=== PATIENT | male | born 1990 | race Caucasian/White ===

== ENCOUNTER 2018-10-26 14:54 | Emergency (ER) | payer OTHER ==
[2018-10-26 15:16] VITALS: BP 127/80
--- NOTE | 2018-10-26 15:16 | ED Physician Documentation ---
History of Present Illness - Stated complaint Stated Complaint: CARBON MENOXIDE EXPOSURE - History obtained from History obtained from: Patient - History of Present Illness Timing: Yesterday (They have been helping their parents move, they were in the house during the day for the last few days, they were last there yesterday morning. They found that the Furnace in the house was leaking carbon monoxide. This patient is relatively asymptomatic although he had red eyes yesterday and mild nausea.) Review of Systems Constitutional: denies: Fever, Chills Nose: reports: Rhinorrhea / runny nose Cardiac: denies: Chest pain / pressure, Palpitations Respiratory: denies: Dyspnea, Cough PD PAST MEDICAL HISTORY - Allergies Allergies/Adverse Reactions: Allergies Allergy/AdvReac Type Severity Reaction Status Date / Time No Known Drug Allergies Allergy Verified 10/26/18 15:14 PD ED PE NORMAL - Vitals Vital signs reviewed: Yes - General General: Alert and oriented X 3, No acute distress - HEENT HEENT: PERRL, EOMI - Neck Neck: Supple, no meningeal sign, No bony TTP - Cardiac Cardiac: RRR, No murmur - Respiratory Respiratory: No respiratory distress, Clear bilaterally - Abdomen Abdomen: Non tender - Derm Derm: No rash - Neuro Neuro: Alert and oriented X 3, Normal speech - Psych Psych: Normal mood, Normal affect Results - Vitals Vitals: Vital Signs - 24 hr 10/26/18 15:14 Temperature 36.9 C Heart Rate 73 Respiratory 16 Rate Blood Pressure 127/80 O2 Saturation 97 Oxygen O2 Source Room air - Labs Labs: Laboratory Tests 10/26/18 15:28 VBG Total Hgb 14.9 VBG Oxyhemoglobin 79 L VBG Carboxyhemoglobin 1.3 VBG Methemoglobin 0.3 Departure - Departure Disposition: 01 Home, Self Care Clinical Impression: Carbon monoxide exposure Condition: Good Record reviewed to determine appropriate education?: Yes Comments: Do not go back in that house. Return for new or worsening symptoms.
== END 2018-10-26 17:08 | disposition home or self-care (01) ==
LOC: ED 14:54
DX: Z77.29 Contact with and (suspected) exposure to other hazardous substances (principal)
CPT/HCPCS: 36415; 82375; 99282

== ENCOUNTER 2020-08-01 18:45 | Outpatient (CLI) | payer OTHER | END 2020-08-01 18:46 | disposition critical access hospital (66) | LOC: EMS 18:45 | PROVIDERS: ATTEND Surgery | DX: R68.84 Jaw pain (principal); R20.0 Anesthesia of skin | CPT/HCPCS: A0425; A0429 ==

== ENCOUNTER 2020-08-01 19:02 | Emergency (ER) | payer OTHER ==
[2020-08-01 19:15] VITALS: BP 133/84
--- NOTE | 2020-08-01 19:17 | ED Physician Documentation ---
PD HPI FOCAL NEURO - Stated complaint Stated Complaint: NUMBNESS - Chief complaint Chief Complaint: Neuro - History obtained from History obtained from: Patient - Additional information Additional information: He ate a frozen banana and then started to feel pain on the left side of the jaw and then started developed numbness and tingling of the left arm. All of his symptoms are now gone. Review of Systems Constitutional: denies: Fever, Chills Nose: reports: Reviewed and negative Throat: reports: Reviewed and negative Cardiac: reports: Reviewed and negative PD PAST MEDICAL HISTORY - Past Surgical History Past Surgical History: Yes General: Hiatal hernia repair - Allergies Allergies/Adverse Reactions: Allergies Allergy/AdvReac Type Severity Reaction Status Date / Time No Known Drug Allergies Allergy Verified 08/01/20 19:15 - Social History Does the pt smoke?: No Smoking Status: Never smoker Does the pt drink ETOH?: Yes Does the pt have substance abuse?: No - Immunizations Immunizations are current?: Yes - POLST Patient has POLST: No PD ED PE NORMAL - Vitals Vital signs reviewed: Yes - General General: Alert and oriented X 3, No acute distress - HEENT HEENT: PERRL, EOMI - Neck Neck: Supple, no meningeal sign, No bony TTP - Cardiac Cardiac: RRR, No murmur - Respiratory Respiratory: No respiratory distress, Clear bilaterally - Abdomen Abdomen: Non tender - Back Back: No CVA TTP, No spinal TTP - Derm Derm: Normal color, Warm and dry - Extremities Extremities: No edema, No calf tenderness / cord - Neuro Neuro: Alert and oriented X 3, No motor deficit, No sensory deficit, Normal speech NIHSS - Time Time: 19:10 - Level of Consciousness Level of consciousness: (0) Alert, Keenly responsive LOC Questions: (0) Answers both Q's correct LOC Commands: (0) Performs both correctly - Gaze Best Gaze: (0) Normal - Visual Visual: (0) No loss - Facial Palsy Facial Palsy: (0) Normal, symmetrical movement - Motor Arms (both separate) Motor Arm (right): (0) No drift Motor Arm (left): (0) No drift - Motor Legs (both separate) Motor Leg (right): (0) No drift Motor Leg (left): (0) No drift - Limb Ataxia Limb Ataxia: (0) Absent - Sensory Sensory: (0) Normal - Best Language Best Language: (0) No aphasia - Dysarthria Dysarthria: (0) Normal - Extinction and Inattention (formally neg Extinction and inattention: (0) No abnormality - Total Score/Results Total Score/Result: 0 Results - Vitals Vitals: Vital Signs - 24 hr 08/01/20 19:05 Temperature 37 C Heart Rate 68 Respiratory 17 Rate Blood Pressure 133/84 H O2 Saturation 99 Oxygen O2 Source Room air PD MEDICAL DECISION MAKING - ED course ED course: Suspect this was some sort of vasospastic episode which is now completely resolved, exacerbated by some panicky symptoms. His exam is now normal. Departure - Departure Disposition: 01 Home, Self Care Clinical Impression: Paresthesia Condition: Good Record reviewed to determine appropriate education?: Yes Comments: As discussed, the cause of your symptoms today was probably a vasospastic episode from the frozen banana compounded by some panicky symptoms. Thankfully all your symptoms are gone and your exam is normal. Return if worse.
== END 2020-08-01 19:20 | disposition home or self-care (01) ==
LOC: EDUNIT# → EDBD → SUPCPDRO 19:02 → ED 19:02
DX: R20.2 Paresthesia of skin (principal)
CPT/HCPCS: 99281; 99283